=== PATIENT | female | born 1975 | race Caucasian/White ===

== ENCOUNTER 2019-07-23 22:20 | Emergency (ER) | payer SELFPAY ==
--- NOTE | ~2019-07-23 | XR_ITS ---
EXAMINATION: XR chest 1V portable INDICATION: Shortness of breath, nausea and vomiting TECHNIQUE: Portable AP chest at 2306 hours COMPARISON: None available FINDINGS: There are minimal airspace opacities of the right lung base. No pleural effusion or pneumot horax is identified. The cardiomediastinal silhouette is stable. The visualized osseous structures ar e unremarkable. IMPRESSION: 1. Minimal airspace opacities of the right lung base, consistent with atelectasis versus pneumonia. Reviewed, dictated and finalized at location A. IMPRESSION: 1. Minimal airspace opacities of the right lung base, consistent with atelectas is versus pneumonia.
[2019-07-23 22:31] VITALS: BP 119/107; PULSE 105; RESP 14; TEMP 36.8; O2SAT 100
--- NOTE | 2019-07-23 22:35 | ED.NAVMDI ---
HPI - Nausea/Vomiting/Diarrhea General Chief complaint: Nausea/Vomiting/Diarrhea Stated complaint: not feeling well Time Seen by Provider: 07/23/19 22:33 History of Present Illness HPI Narrative: Not feeling well for several days. Recently diagnosed with Strep and treated. No longer having a sore throat, but now fatigue, cough, SOB, Nausea. No fever. Related Data Allergies Allergy/AdvReac Type Severity Reaction Status Date / Time No Known Allergies Allergy Verified 07/23/19 22:40 Review of Systems Review of Systems: All systems reviewed & are unremarkable except as noted in HPI and below Constitutional: Constitutional: Reports no additional constitutional complaints, Reports chills and Denies fever(s) ENT: Denies dizziness Cardiovascular: Cardiovascular: Denies chest pain Respiratory: Respiratory: Reports chest congestion, Reports cough and Reports dyspnea Gastrointestinal: Gastrointestinal: Denies abdominal pain and Reports nausea Genitourinary: Genitourinary: Reports no additional female genitourinary complaints PMFSH Past Medical History Medical History (Updated 07/24/19 @ 01:53 by Sunil Haywood MD) Anemia Surgical History Surgical History (Updated 07/24/19 @ 01:53 by Sunil Haywood MD) Gastric bypass status for obesity Social History Social History Gender identity (if verbalized by the patient): Female Exam Const: General: no acute distress and alert Nutritional Appearance: obese Orientation/consciousness: patient oriented x3 HENMT: Head: normal to inspection Resp: Effort & Inspection: normal respiratory effort Auscultation: rhonchi right lower Cardio: Rate: regular rate Rhythm: regular rhythm GI: GI Palp: Yes Soft to palpation and No Tenderness to palpation present (GI) Skin: General skin exam: pallor Neuro: General: patient oriented x3, moves all extremities and no focal motor deficits Speech: normal speech Extrem: General: normal to inspection and no edema Course Vital Signs Vital signs: Vital Signs Temperature 36.8 C 07/23/19 22:31 Pulse Rate 105 H 07/23/19 22:31 Respiratory Rate 14 07/23/19 22:31 Blood Pressure 119/107 H 07/23/19 22:31 Pulse Oximetry 100 07/23/19 22:31 Temperature 36.8 C 07/23/19 22:31 Pulse Rate 94 07/24/19 00:25 Respiratory Rate 17 07/24/19 00:25 Blood Pressure 137/81 07/24/19 00:25 Pulse Oximetry 100 07/24/19 00:25 MDM - Nausea/Vomiting/Diarrhea MDM Narrative Medical decision making narrative: Minimal infiltrate on CXR. Will treat with azithromycin. UA questionable. Denies any symptoms of UTI. Very anemic, she believes that this is her baseline. Differential Diagnosis Differential diagnosis: Likely gastroenteritis, dehydration and other (Pneumonia, COVID) Medical Records Attestation: I reviewed the patient's medical records. Lab Data Attestation: I reviewed the patient's lab results. Result diagrams: 07/23/19 22:53 07/23/19 22:52 Labs: Lab Results 07/23/19 07/23/19 07/23/19 Range/Units 22:52 22:53 23:10 WBC 4.7 (4.5-10.0) K/mm3 RBC 3.88 L (4.2-5.4) M/mm3 Hgb 8.1 L (12.0-15.0) g/dL Hct 29.2 L (37.0-47.0) % MCV 75.3 L (80-100) fl MCH 20.9 L (26-34) pg MCHC 27.7 L (32-36) g/dl RDW 21.5 H (11.5-14.5) % Plt Count 265 (150-375) k/mm3 MPV 9.3 (7.4-10.4) fl Immature Gran % (Auto) 0.4 (0-0.5) % Neut % (Auto) 40.6 L (45.5-73.1) % Lymph % (Auto) 47.6 H (18.3-44.2) % Preble % (Auto) 8.7 H (2.6-8.5) % Eos % (Auto) 1.9 (0-4.4) % Baso % (Auto) 0.8 (0.2-1.2) % Lymph # (Auto) 2.25 (0.9-3.2) K/mm3 Preble # (Auto) 0.4 (0.1-0.6) K/mm3 Eos # (Auto) 0.1 (0-0.3) K/mm3 Baso # (Auto) 0.0 (0.0-0.1) K/mm3 Abs Immat Gran (auto) 0.02 (0.00-0.031) K/mm3 Absolute Neuts (auto) 1.9 (1.3-6.7) K/mm3 Absolute Nucleated RBC 0.
[2019-07-23 23:01] LABS: Basophils Percent Auto 0.8 % (0.2-1.2); Eosinophils Absolute Auto 0.1 K/mm3 (0-0.3); Eosinophils Percent Auto 1.9 % (0-4.4); Hematocrit 29.2 % (37.0-47.0); Hemoglobin 8.1 g/dL (12.0-15.0); Immature Granulocyte Absolute 0.02 K/mm3 (0.00-0.031); Immature Granulocyte Percent A 0.4 % (0-0.5); Lymphocytes Absolute Auto 2.25 K/mm3 (0.9-3.2); Lymphocytes Percent Auto 47.6 % (18.3-44.2); Mean Corpuscular HGB Conc 27.7 g/dl (32-36); Mean Corpuscular Hemoglobin 20.9 pg (26-34); Mean Corpuscular Volume 75.3 fl (80-100); Mean Platelet Volume 9.3 fl (7.4-10.4); Monocytes Absolute Auto 0.4 K/mm3 (0.1-0.6); Monocytes Percent Auto 8.7 % (2.6-8.5); Neutrophils Absolute Auto 1.9 K/mm3 (1.3-6.7); Neutrophils Percent Auto 40.6 % (45.5-73.1); Platelet Count Result 265 k/mm3 (150-375); Red Blood Count 3.88 M/mm3 (4.2-5.4); Red Cell Distribution Width 21.5 % (11.5-14.5); White Blood Count 4.7 K/mm3 (4.5-10.0)
[2019-07-23 23:13] LABS: Hypochromasia 2+ (NORMAL); Microcytosis 1+ (NORMAL); Ovalocytes 1+ (NORMAL); Platelet Estimate Adequate (Adequate)
[2019-07-23 23:14] LABS: Large Platelets Present
[2019-07-23 23:14] LABS: Alanine Aminotransferase 70 U/L (4-35); Albumin Level 3.7 g/dL (3.5-5.1); Alkaline Phosphatase 140 U/L (38-126); Aspartate Amino Transferase 132 U/L (14-36); Bilirubin,Total 0.3 mg/dL (0.2-1.3); Blood Urea Nitrogen 11 mg/dL (7-17); Calcium 8.2 mg/dL (8.4-10.2); Carbon Dioxide 27 mmol/L (22-30); Chloride 105 mmol/L (98-107); Estimated CRCL calculation 119 ml/min; Estimated Glomerular Filt Rate > 60; Glucose 97 mg/dL (65-105); Lipase 151 U/L (23-300); Potassium 4.4 mmol/L (3.4-5.0); Sodium 136 mmol/L (137-145)
[2019-07-23 23:20] LABS: Add Urine Microscopic? YES; Appearance Urine Clear (Clear); Bilirubin Urine Negative (Negative); Blood Urine Negative (Negative); Color Urine Yellow (Yellow); Glucose Urine UA Negative (Negative); Ketones Urine Negative (Negative); Leukocyte Esterase Ur Trace LEU/UL (Negative); Mucus Urine Rare /lpf; Nitrate Urine Negative (Negative); Protein Urine Negative (Negative); RBC Urine 0-2 /hpf (0-2); Specific Grav Ur 1.012 (1.001-1.035); Squamous Epithelial Cell Urine Many /hpf (Few); Urobilinogen Urine Negative mg/dL (<2.0)
[2019-07-24 00:25] VITALS: BP 137/81; PULSE 94; RESP 17; O2SAT 100
== END 2019-07-24 00:40 | disposition home or self-care (01) ==
PROVIDERS: Emergency Provider Emergency Medicine
DX: J18.9 Pneumonia, unspecified organism (principal); D64.9 Anemia, unspecified; Z98.84 Bariatric surgery status
CPT/HCPCS: 36415; 71045; 80053; 81001; 81025; 83690; 85025; 99283

== ENCOUNTER 2019-07-24 10:52 | Observation (INO) | payer OTHER, SELFPAY ==
[2019-07-24] VITALS (13 sets, daily range): BP systolic 104–138; BP diastolic 64–83; PULSE 75–137; RESP 14–24; TEMP 36.5–37.4; O2SAT 97–100; BMI 39.6
--- NOTE | ~2019-07-24 | US_ITS ---
EXAMINATION: US right upper quadrant DATE: 07/25/2019 10:08 INDICATION: Elevated liver function tests. TECHNIQUE: Multiple grayscale and Doppler ultrasound images of the abdomen were obtained. COMPARISON: None FINDINGS: The pancreatic body is normal in appearance. The pancreatic head and tail are not visualized. Liver has normal contour, with a smooth surface. There is increased parenchymal echogenicity and coarsened echotexture consistent with diffuse hepatic steatosis. No liver lesion identified. No intrahepatic b iliary duct dilation suspected. Portal venous flow was seen in the hepatopetal, normal direction and has normal Doppler waveform. Gallbladder is surgically absent. Common bile duct measures up to 7 mm d iameter which is within normal limits post cholecystectomy. Visualized proximal to mid inferior vena cava is normal. IMPRESSION: 1. Diffuse hepatic steatosis. 2. Cholecystectomy. Reviewed, dictated and finalized at location A.
--- NOTE | 2019-07-24 11:20 | ED.URI ---
HPI - URI/Sore Throat General Chief Complaint: Upper Respiratory Infection Stated Complaint: PNEUMONIA SEEN IN ED LAST NIGHT Time Seen by Provider: 07/24/19 11:04 Source: patient Mode of arrival: ambulatory Limitations: no limitations History of Present Illness HPI Narrative: Patient returns to the emergency department after being seen last night and diagnosed with pneumonia. Patient was prescribed azithromycin but did not citrus picker her prescription. Patient returns stating that she feels more weak. Patient reports low-grade fevers of 100.7, nausea, vomiting, bowel like diarrhea. Patient reports rib soreness. Patient states she has been sick for approximately 2 weeks. She reports initially she was diagnosed and treated for strep pharyngitis and she had an accompanying sore throat which has resolved. Patient denies cough or wheezing. Patient denies known COVID exposure or recent travel. Patient has been alternating Tylenol and ibuprofen [id number] but has not taken any other medications to alleviate her symptoms. Patient states she was told that she is anemic and she is concerned that her anemia may have worsened. Related Data Allergies Allergy/AdvReac Type Severity Reaction Status Date / Time No Known Allergies Allergy Verified 07/24/19 11:04 Review of Systems Review of Systems: Narrative: CONSTITUTIONAL: Denies fever, chills, or sweats. EYES: Denies visual changes, redness, or discharge. ENT: Denies rhinorrhea, congestion, sore throat, or otalgia. CARDIOVASCULAR: Denies chest pain, palpitations, or edema. RESPIRATORY: Reports dyspnea denies cough GASTROINTESTINAL: Denies abdominal pain, reports nausea, vomiting, or diarrhea. GENITOURINARY: Denies dysuria or hematuria. SKIN: Denies rash or itching. MUSCULOSKELETAL: Denies back pain, joint pain, or myalgia. NEUROLOGIC: Denies headache, numbness, dizziness, or weakness. PSYCHIATRIC: Denies anxiety or depression. [facility] Past Medical History Medical History (Updated 07/24/19 @ 13:07 by Nicolasa Lenz PA-C) Anemia Surgical History Surgical History (Updated 07/24/19 @ 12:56 by Nicolasa Lenz PA-C) Gastric bypass status for obesity Social History Social History Gender identity (if verbalized by the patient): Female Exam Narrative: Exam Narrative: GENERAL: well-nourished, disheveled, unkempt. HEAD: Normocephalic, atraumatic. EYES: PERRLA and EOMI. ENT: Nares clear, no rhinorrhea or epistaxis. Mucous membranes moist. Oropharynx without tonsillar hypertrophy exudate or other lesions. Bilateral TMs pearly alvarado nonbulging NECK: Supple. Range of motion intact. CHEST: Clear to auscultation. No respiratory distress. No wheezes rales or rhonchi. No tachypnea. Speaking in complete sentences without difficulty. HEART: Regular rate and rhythm. ABDOMEN: Obese. Soft, nontender, nondistended, hyper active bowel sounds. Hemoccult negative. EXTREMITIES: Normal range of motion. No edema. SKIN: Warm, dry, no rash. NEURO: No focal deficits. Alert and oriented x3. PSYCH: Normal mood and affect. Course Vital Signs Vital signs: Vital Signs Temperature 99.4 F 07/24/19 10:58 Pulse Rate 106 H 07/24/19 10:58 Respiratory Rate 18 07/24/19 10:58 Blood Pressure 138/75 07/24/19 10:58 Pulse Oximetry 100 07/24/19 10:58 Temperature 99.4 F 07/24/19 10:58 Pulse Rate 106 H 07/24/19 10:58 Respiratory Rate 18 07/24/19 10:58 Blood Pressure 138/75 07/24/19 10:58 Pulse Oximetry 100 07/24/19 11:02 MDM - URI/Sore Throat MDM Narrative Medical decision making narrative: Discussed with Dr. Jasso hospitalist patient return to the ER after visit less than 24 hours ago. Patient complaining of present symptoms. Patient x-ray findings reviewed from last night that states mild right lower lobe changes atelectasis versus pneumonia. Patient was tested for influenza which was negative. Patient tested
[2019-07-24 11:32] LABS: Basophils Absolute Auto 0.1 K/mm3 (0.0-0.1); Basophils Percent Auto 1.4 % (0.2-1.2); Hematocrit 27.8 % (37.0-47.0); Hemoglobin 7.8 g/dL (12.0-15.0); Immature Granulocyte Absolute 0.01 K/mm3 (0.00-0.031); Immature Granulocyte Percent A 0.2 % (0-0.5); Lymphocytes Absolute Auto 1.22 K/mm3 (0.9-3.2); Lymphocytes Percent Auto 29.5 % (18.3-44.2); Mean Corpuscular HGB Conc 28.1 g/dl (32-36); Mean Corpuscular Hemoglobin 21.3 pg (26-34); Mean Corpuscular Volume 75.7 fl (80-100); Mean Platelet Volume 9.6 fl (7.4-10.4); Monocytes Absolute Auto 0.4 K/mm3 (0.1-0.6); Monocytes Percent Auto 10.4 % (2.6-8.5); Neutrophils Absolute Auto 2.4 K/mm3 (1.3-6.7); Neutrophils Percent Auto 57.5 % (45.5-73.1); Platelet Count Result 277 k/mm3 (150-375); Red Blood Count 3.67 M/mm3 (4.2-5.4); Red Cell Distribution Width 21.4 % (11.5-14.5); White Blood Count 4.1 K/mm3 (4.5-10.0)
[2019-07-24 11:42] LABS: Hypochromasia 1+ (NORMAL); Microcytosis 1+ (NORMAL); Ovalocytes 1+ (NORMAL); Platelet Estimate Adequate (Adequate)
[2019-07-24 11:44] LABS: Alanine Aminotransferase 69 U/L (4-35); Albumin Level 3.6 g/dL (3.5-5.1); Alkaline Phosphatase 142 U/L (38-126); Aspartate Amino Transferase 139 U/L (14-36); Bilirubin,Total 0.4 mg/dL (0.2-1.3); Blood Urea Nitrogen 10 mg/dL (7-17); Calcium 8.2 mg/dL (8.4-10.2); Carbon Dioxide 25 mmol/L (22-30); Chloride 106 mmol/L (98-107); Estimated Glomerular Filt Rate > 60; Glucose 94 mg/dL (65-105); Potassium 4.6 mmol/L (3.4-5.0); Sodium 136 mmol/L (137-145)
[2019-07-24] MEDS: METOCLOPRAMIDE HCL INJ 10 MG/2 ML VIAL IV PUSH (12:13)
[2019-07-24] MEDS: SODIUM CHLORIDE 0.9% IV 1,000 ML 999 ML IV CONT (12:13)
--- NOTE | 2019-07-24 13:39 | PC.NURSE ---
Called pt and let him know where she was going
--- NOTE | 2019-07-24 14:22 | ADMGEN ---
This patient, Becky Lowry, was admitted to [facility] Surg Room 325-01. Patient/family oriented to hospital policies and general routines including ID bracelet, bed and alarms, visiting hours, pain management, procedures, bathroom and other care routines, personal items, smoking policy, room service/diet, and visiting hours. Valuables list has been completed. Information on how to activate the Rapid Response Team has been discussed. Patient/Family are encouraged to report perceived risks to care and to ask questions if they do not understand what they are told or what they should do.
--- NOTE | 2019-07-24 15:10 | PM.IMHP ---
H&P: HPI History of Present Illness Chief complaint: Shortness of breath. Narrative: Becky Lowry is a 43-year-old female with history of gastric bypass surgery in 2000 who presented to the emergency department earlier this morning via private vehicle for evaluation of shortness of breath. She is originally from [place], and she and her fiance moved to the area within the past 1 month or so. Several weeks ago, she was diagnosed with strep pharyngitis and completed a course of antibiotics with resolution of her sore throat, however she continues to feel unwell with symptoms include fatigue, nonproductive cough, shortness of breath, and nausea. She was seen in emergency department last evening, was diagnosed with right lower lobe pneumonia, and was discharged with a prescription for azithromycin. Given the late hour, she was unable to fill the antibiotic. Today, she feels worse and is now having fevers up to 100.7?. Additionally, she had several episodes of emesis today. At the time my evaluation, she complains of lower back pain, mostly on the left side for which she has alternating ibuprofen and Tylenol. She believes that is due to coughing. She denies lightheadedness and dizziness. No sinus congestion, rhinorrhea, otalgia, or odynophagia. She denies chest pain and pleuritic pain. No palpitations. She denies hematemesis, melena, and hematochezia. No hematuria, dysuria, urgency, urinary hesitancy, or frequency. No known exposure to patient's positive for COVID-19. Of note, she was found to have microcytic anemia on labs and with further questioning she tells me she has had a longstanding history of anemia and it sounds like she only took supplements for short period of time after her gastric bypass. She denies heavy periods, as above denies hematemesis, melena, hematochezia, hematuria, hemoptysis, and epistaxis. Review of Systems Review of Systems: Narrative: Twelve systems were reviewed with pertinent positives and negatives as per HPI. Except as documented, all other systems were reviewed and are negative. [facility] Past Medical History Medical History (Updated 07/24/19 @ 16:04 by Eveline Ortiz PA-C) Anemia Surgical History Surgical History (Updated 07/24/19 @ 16:04 by Eveline Ortiz PA-C) Gastric bypass status for obesity History of cholecystectomy History of tubal ligation Family History Family History (Updated 07/24/19 @ 15:48 by Eveline Ortiz PA-C) Mother ALS (amyotrophic lateral sclerosis) Father Diabetes mellitus Social History Social History (Updated 07/24/19 @ 16:02 by Eveline Ortiz PA-C) Social History: The patient is originally from [place], but she and her fiance moved to the area within the past 1 months time. She has 4 children. She smokes about a pack of cigarettes per day. She drinks maybe 3 to 4 alcoholic beverages a week. She denies drug use. She designates her fiancee as her surrogate decision maker and she wishes to be a full code. Smoking packs per day: 1 Smoking cigarettes per day: 20.0 Spiritual care concerns: No Agree to blood products: Yes Meds Home Medications and Allergies Home Medications Medication Instructions Recorded Confirmed Type azithromycin See Rx Instructions .ROUTE 07/24/19 07/24/19 Rx .COMPLEX #6 tablet Allergies Allergy/AdvReac Type Severity Reaction Status Date / Time No Known Allergies Allergy Verified 07/24/19 11:04 Vital Signs Vital Signs - 24 hr 07/24/19 10:58 07/24/19 11:01 07/24/19 11:02 Temperature 99.4 F Pulse Rate 106 H 95 Respiratory Rate 18 18 Blood Pressure 138/75 138/75 Pulse Oximetry 100 100 100 07/24/19 11:16 07/24/19 11:31 07/24/19 12:16 Temperature Pulse Rate 76 137 H 129 H Respiratory Rate 15 14 15 Blood Pressure 136/78 131/83 104/68 Pulse Oximetry 100 98 100 07/24/19 12:31 07/24/19 12:46 07/24/19 13:01 Temperature Pulse Rate 80 75 85 Respiratory Rate 21 H
[2019-07-24 15:50] LABS: Hematocrit 25.3 % (37.0-47.0)
[2019-07-24 15:51] LABS: Immature Reticulocyte Fraction 17.2 % (3.0-15.9); Reticulocyte Percent 1.57 % (0.7-4.3); Reticulocytes Absolute 0.05 B/L (32.2-175.7)
[2019-07-24 16:07] LABS: Lactate Dehydrogenase 497 U/L (313-618)
[2019-07-24 16:17] LABS: Monoscreen Negative (Negative); Negative Monotest Control Negative (Negative); Positive Monotest Control Positive (Positive)
[2019-07-24 16:21] LABS: Iron 29 ug/dL (37-170)
[2019-07-24 16:31] LABS: Percent Iron Saturation 7 % (20-50)
[2019-07-24 16:55] LABS: Hepatitis B Surface Antigen Negative (Negative)
[2019-07-24 17:01] LABS: HAV RESULT Negative (Negative); Hepatitis B Core IgM Result Negative (Negative)
[2019-07-24 17:14] LABS: Folic Acid 4.9 ng/mL (2.76->20)
[2019-07-24 17:15] LABS: Hepatitis C Virus Antibody Reactive (Negative)
[2019-07-24] MEDS: ACETAMINOPHEN 500 MG TABLET PO (20:36)
[2019-07-25 02:00] VITALS: BP 116/54; PULSE 75; RESP 18; TEMP 36.4; O2SAT 99
[2019-07-25 05:31] LABS: Add Urine Microscopic? NO; Appearance Urine Clear (Clear); Bilirubin Urine Negative (Negative); Blood Urine Negative (Negative); Color Urine Yellow (Yellow); Glucose Urine UA Negative (Negative); Ketones Urine Negative (Negative); Leukocyte Esterase Ur Negative LEU/UL (Negative); Nitrate Urine Negative (Negative); Protein Urine Negative (Negative); Specific Grav Ur 1.012 (1.001-1.035); Urobilinogen Urine Negative mg/dL (<2.0)
[2019-07-25 06:00] VITALS: BP 130/59; PULSE 78; RESP 16; TEMP 36.9; O2SAT 100
[2019-07-25 09:10] LABS: IFOB Positive Control Positive; Immunochemical Fecal Occult Bl Negative (N)
[2019-07-25 09:17] LABS: Alanine Aminotransferase 59 U/L (4-35); Albumin Level 3.3 g/dL (3.5-5.1); Alkaline Phosphatase 131 U/L (38-126); Aspartate Amino Transferase 94 U/L (14-36); Bilirubin,Total 0.9 mg/dL (0.2-1.3); Blood Urea Nitrogen 7 mg/dL (7-17); Calcium 7.9 mg/dL (8.4-10.2); Carbon Dioxide 25 mmol/L (22-30); Chloride 105 mmol/L (98-107); Estimated CRCL calculation 140 ml/min; Estimated Glomerular Filt Rate > 60; Glucose 92 mg/dL (65-105); Potassium 3.9 mmol/L (3.4-5.0); Sodium 135 mmol/L (137-145)
[2019-07-25 09:21] LABS: Basophils Percent Auto 0.8 % (0.2-1.2); Eosinophils Absolute Auto 0.1 K/mm3 (0-0.3); Eosinophils Percent Auto 1.3 % (0-4.4); Hematocrit 28.6 % (37.0-47.0); Hemoglobin 7.8 g/dL (12.0-15.0); Immature Granulocyte Absolute 0.01 K/mm3 (0.00-0.031); Immature Granulocyte Percent A 0.2 % (0-0.5); Lymphocytes Absolute Auto 1.08 K/mm3 (0.9-3.2); Lymphocytes Percent Auto 22.6 % (18.3-44.2); Mean Corpuscular HGB Conc 27.3 g/dl (32-36); Mean Corpuscular Hemoglobin 21.1 pg (26-34); Mean Corpuscular Volume 77.3 fl (80-100); Mean Platelet Volume 9.8 fl (7.4-10.4); Monocytes Absolute Auto 0.4 K/mm3 (0.1-0.6); Neutrophils Absolute Auto 3.2 K/mm3 (1.3-6.7); Neutrophils Percent Auto 66.1 % (45.5-73.1); Platelet Count Result 246 k/mm3 (150-375); Red Cell Distribution Width 21.2 % (11.5-14.5); White Blood Count 4.8 K/mm3 (4.5-10.0)
[2019-07-25 09:52] LABS: Hypochromasia 1+ (NORMAL); Platelet Estimate Adequate (Adequate)
[2019-07-25 09:53] LABS: Anisocytosis 1+ (NORMAL); Ovalocytes 1+ (NORMAL); Poikilocytosis 1+ (NORMAL); Target Cells 1+ (NORMAL)
--- NOTE | 2019-07-25 11:19 | PM.IMPN ---
Progress Note: A&P Assessment and Plan (1) Microcytic anemia: Code(s): D50.9 - Iron deficiency anemia, unspecified Status: Acute Assessment and Plan: Patient has a history of chronic iron deficiency anemia and was previously on iron supplements but took herself off these. Stool was Hemoccult-negative on rectal exam in the ED. Iron studies reveal iron deficiency. Hgb improved today at 7.8. Hct 28.6 Administer IV iron infusion today Continue to monitor H&H Q6H. Transfuse prn with Hgb threshold 7.0 Await results of IFOB. Collected on 07/24. May Consider GI consult based on results of IFOB. (2) Suspected COVID-19 virus infection: Code(s): R68.89 - Other general symptoms and signs Status: Acute Assessment and Plan: CXR revealed opacities of right lung base. Given symptoms, she was tested for COVID-19 in the ED. She has been afebrile but does have cough. She is maintaining adequate oxygen saturations at 100% on room air. Continue isolation precautions She has been started on azithromycin and ceftriaxone. Initiated on 07/23. Continue oxygen prn with goal O2 saturation >92%. Await results of COVID-19 test Trend acute phase reactants Continue albuterol MDI prn. Avoid nebulizer or aerosolizing procedures. Begin acetaminophen prn fever Sputum culture ordered and will attempt culture. Begin Mucinex for cough (3) Elevated LFTs: Code(s): R79.89 - Other specified abnormal findings of blood chemistry Status: Acute Assessment and Plan: LFTs elevated at presentation. Remain elevated but trending down today. US reveals diffuse hepatic steatosis. Hepatitis panel is reactive for Hep C. HCV RNA test is pending. (4) Nicotine dependence: Qualifiers: Nicotine product type: cigarettes Substance use status: uncomplicated Qualified Code(s): F17.210 - Nicotine dependence, cigarettes, uncomplicated Code(s): F17.200 - Nicotine dependence, unspecified, uncomplicated Status: Acute Assessment and Plan: Patient smokes 1ppd. Reports feelings of anxiety and cigarette craving. Begin nicotine patch Educate regarding smoking cessation Subjective Date/time seen: 07/25/19 11:19 Interval history: Date of service: 07/25/19 Ms. Lowry is seen today and reports she is feeling anxious. She tells me she smokes daily and is craving a cigarette. She endorses feelings of panic about being stuck in her room alone and not knowing what is going on with her from a medical aspect. She also endorses nonproductive cough which is forceful and is causing pain in her ribs. She has tried using a heating pad which has not helped. She has been NPO for [facility] US and she tells me she is very hungry. She reports she had a bowel movement this morning which was collected. She denied hematochezia or melena. She denies any active bleeding. She endorses bruising from site of blood draw. She denies dizziness or lightheadedness. She has been ambulating around the room without difficulty. She denies chest pain or shortness of breath. She denies dysuria or hematuria. She is having trouble sleeping as she is uncomfortable. Review of Systems Review of Systems: Narrative: A 12 point review of systems was reviewed with pertinent positives and negatives as per HPI. Exam Narrative: Exam Narrative: Ms. Aldana is examined alone today. She is an obese female who is lying supine in bed. She appears comfortable and is in NARD. HR 78. BP 130/59. R R16. T98.4. Neuro: awake, alert and oriented x3, speech clear, no focal neuro deficits noted HEENMT: normocephalic, atraumatic, EOMI, PERRL, sclerae anicteric, moist oral mucosa, normal oropharynx Neck: supple, no lymphadenopathy Respiratory: occasi
[2019-07-25] MEDS: NICOTINE (*PBKC) 21 MG PATCH 1 PATCH TRANSDERM (12:07)
[2019-07-25] MEDS: ACETAMINOPHEN 500 MG TABLET PO (12:22)
[2019-07-25 14:00] VITALS: BP 122/85; PULSE 85; RESP 16; TEMP 36.3; O2SAT 100
[2019-07-25 14:06] LABS: Hematocrit 27.1 % (37.0-47.0); Hemoglobin 7.3 g/dL (12.0-15.0)
[2019-07-25 15:09] LABS: SARS-CoV-2 RNA PCR Negative
--- NOTE | 2019-07-25 16:50 | PM.DS ---
DS: Diagnosis Admitting Diagnosis Admitting Diagnosis: Iron deficiency anemia, unspecified Discharge Diagnosis (1) Microcytic anemia: Code(s): D50.9 - Iron deficiency anemia, unspecified Status: Acute (2) Suspected COVID-19 virus infection: Code(s): R68.89 - Other general symptoms and signs Status: Acute (3) Elevated LFTs: Code(s): R79.89 - Other specified abnormal findings of blood chemistry Status: Acute (4) Nicotine dependence: Qualifiers: Nicotine product type: cigarettes Substance use status: uncomplicated Qualified Code(s): F17.210 - Nicotine dependence, cigarettes, uncomplicated Code(s): F17.200 - Nicotine dependence, unspecified, uncomplicated Status: Acute DS: Summary Hospital Course Reason for hospitalization: Weakness, shortness of breath Hospital Course: Date of admission: 07/24/19 Date of departure: 07/25/19 Becky Aldana is a 43 year old female with a PMH significant for anemia and s/p gastric bypass and cholecystectomy who presented to the ED on 07/24/2019 after previously being seen in the ED on 07/23/2019 and being diagnosed with pneumonia. She was prescribed azithromycin but did not pick up and delivery driver her prescription. She stated she was feeling weaker and her cough had worsened. At presentation, T 99.4, HR 106, 100% O2, WBC 4.1, Hgb 7.8, Hct 27.8, AST 139, ALT 69, ALP 142, influenza negative, Covid pending. She was admitted to the hospitalist service on 07/24/2019. Her H&H was monitored every 6 hours and decreased to 7.0. She was treated with IV iron infusion and Hgb increased to 7.8. IFOB was negative for occult blood. I intended for her to stay in the hospital to monitor her H&H closely, transfuse as needed, and consider pursuing GI workup, but the patient departed against medical advice. At time of departure, Hgb was 7.3. I was informed via phone call at approximately 1600 that the patient was leaving [facility] due to concerns with insurance coverage. She was provided financial assistance forms but still opted to leave. She will benefit from outpatient follow up of H&H and will require oral iron supplementation. She was found to be negative for COVID-19. She was maintaining adequate oxygen saturations but did endorse cough. Additionally, her liver enzymes were elevated. She had RUQ US which revealed steatosis and hepatitis panel with reactive Hepatitis C antibody screen. HCV RNA was pending at time of her departure. This will also require outpatient follow up. Patient departed prior to being given any new prescriptions, further smoking cessation education, and before discussing worrisome signs and symptoms for which to seek care. Per nursing staff, patient stated she would pick up and delivery driver her prescription for Azithromycin from ED visit on 07/23/19. She was provided with a list of primary care providers by nursing staff. She left against medical advice on the afternoon of 07/25/2019. Status at Discharge Functional status at discharge: independent ambulation Time Spent with Patient Time attestation: Total time spent providing and/or coordinating discharge services: Exam Narrative: Exam Narrative: Ms. Aldana is examined alone today. She is an obese female who is lying supine in bed. She appears comfortable and is in NARD. HR 78. BP 130/59. R R16. T98.4. Neuro: awake, alert and oriented x3, speech clear, no focal neuro deficits noted HEENMT: normocephalic, atraumatic, EOMI, PERRL, sclerae anicteric, moist oral mucosa, normal oropharynx Neck: supple, no lymphadenopathy Respiratory: occasional inspiratory wheezes bilaterally, normal respiratory effort without accessory muscle use, 100% on room air Cardio: regular rate, regular rhythm, normal S1 and S2 Abdomen: normal to inspection, obese, nondistended, normoactive bowel soundssoft, nontender, no masses Back: normal appearance, no CVA tenderness, no tendernes to palpation Extremities: BLE without edema, erythema, or pain to palpation, dors
[2019-07-26 09:54] LABS: Hepatitis C RNA, Quant PCR 1270000 IU/mL
[2019-07-26 18:10] LABS: Pneumococcal Antigen Urine Not Detected (Not Detected)
[2019-07-27 17:31] LABS: Legionella pneumophila Ag Ur Not Detected (Not Detected)
== END 2019-07-25 16:00 | disposition left against medical advice (07) ==
LOC: ANHED 13:07 → ANH3MEDSUR 13:28
PROVIDERS: Physician Assistant; Admitting Provider Internal Medicine; Emergency Provider Emergency Medicine; Visit Provider Physician Assistant
DX: D50.9 Iron deficiency anemia, unspecified (principal); R68.89 Other general symptoms and signs; R05 Cough; Z20.828 Contact with and (suspected) exposure to other viral communicable diseases; R74.8 Abnormal levels of other serum enzymes; K76.0 Fatty (change of) liver, not elsewhere classified; J18.9 Pneumonia, unspecified organism; F17.210 Nicotine dependence, cigarettes, uncomplicated; Z90.49 Acquired absence of other specified parts of digestive tract; Z98.51 Tubal ligation status; Z98.84 Bariatric surgery status
CPT/HCPCS: 36415; 76705; 80053; 80074; 81003; 82274; 82607; 82728; 82746; 83540; 83550; 83615; 84443; 85014; 85018; 85025; 85046; 86308; 86850; 86900; 86901; 87449; 87522; 87635; 87804; 87899; 96365; 96367; 96375; 99285; A9270; C9803; G0378; J0131; J0456; J0696; J1756; J2765; J7030; U0003